=== PATIENT | female | born 1985 | race African-American/Black ===

== ENCOUNTER 2021-07-18 20:42 | Emergency (ER) | payer OTHER ==
[2021-07-18 20:54] VITALS: BP 137/88
[2021-07-18] MEDS ORDERED: HYDROcod/ACETAM 5/325 MG TABLET PO STA (21:13)
[2021-07-18] MEDS ORDERED: CLINDAMYCIN 150 MG CAPSULE PO STA (21:13)
[2021-07-18] MEDS ORDERED: DEXAMETHASONE 10 MG/ML VIAL PO STA (21:13)
[2021-07-18] MEDS ORDERED: HYDROcod/ACET 5/325 Prepack 4 PO STA (21:13)
[2021-07-18] MEDS ORDERED: CHERRY SYRUP 10 ML UDC PO ONE (21:13)
--- NOTE | 2021-07-18 21:15 | ED Physician Documentation ---
PD HPI HEENT - Stated complaint Stated Complaint: MOUTH PX - Chief complaint Chief Complaint: Heent - History obtained from History obtained from: Patient - History of Present Illness Timing - onset: Yesterday Timing - duration: Days (1) Timing - details: Abrupt onset, Still present Location: Mouth (noted onset of pain and swelling lower gingiva buccal side, with worsening over just a day. No sores on lips nor back of throat. No URI symptoms.) Worsens: Other (sensitive locally.) Associated symptoms: No: Fever, Congestion Similar symptoms before: Has not had sx before Recently seen: Clinic (seen dental clinic for treatment of teeth grinding with caps fairly recently (few weeks ago).) Review of Systems Constitutional: denies: Fever, Chills Nose: denies: Rhinorrhea / runny nose, Congestion Throat: reports: Oral lesions / sores (lower gingival tenderness and swelling). denies: Dental pain / toothache, Sore throat Respiratory: denies: Cough PD PAST MEDICAL HISTORY - Past Medical History Cardiovascular: None Respiratory: None Endocrine/Autoimmune: None - Present Medications Home Medications: Ambulatory Orders Medication Instructions Recorded Confirmed Chlorhexidine Gluconate [Peridex] 15 ml MM TID #118 ml 07/18/21 Clindamycin [Cleocin] 300 mg PO TID 5 Days #15 cap 07/18/21 - Allergies Allergies/Adverse Reactions: Allergies Allergy/AdvReac Type Severity Reaction Status Date / Time No Known Drug Allergies Allergy Verified 07/18/21 20:54 PD ED PE NORMAL - Vitals Vital signs reviewed: Yes - General General: Alert and oriented X 3, Well developed/nourished - HEENT HEENT: Moist mucous membranes, Pharynx benign, Other (the teeth show flattening of occlusal surfaces with caps in place c/w teeth grinding. No dental tenderness to percussion. Lower buccal gingiva with general swelling and tenderness without ulcerations. Lower gum does have receding from enamel. Lips without sores/blisters. ) Results - Vitals Vitals: Vital Signs - 24 hr 07/18/21 20:49 Temperature 36.9 C Heart Rate 112 H Respiratory 18 Rate Blood Pressure 137/88 H O2 Saturation 99 Oxygen O2 Source Room air PD MEDICAL DECISION MAKING - ED course Complexity details: considered differential (does not look herpetic and no ulcerative lesions. Presume acute infectious gingivitis. No abscess noted. ), d/w patient Departure - Departure Disposition: 01 Home, Self Care Clinical Impression: Acute gingivitis due to non-plaque induced gingival disease Condition: Stable Record reviewed to determine appropriate education?: Yes Follow-Up: DONALDO Perez [Provider Group] Prescriptions: Clindamycin [Cleocin] 300 mg PO TID 5 Days #15 cap Chlorhexidine Gluconate [Peridex] 15 ml MM TID #118 ml Comments: Rinse with antiseptic mouth rinse several times daily (chlorhexidine). Use ibuprofen for inflammation and pain 400-600 mg 2 times daily. Clindamycin antibiotic 3 times a day for the next 5 days for presumed bacterial component. Add Tylenol every 4-6 hours if needed for pain or hydrocodone as needed for worse pain. Follow-up with the dental clinic in the next 1 to 2 days. I transmitted your prescriptions to the [facility] in [place]. Discharge Date/Time: 07/18/21 21:26
== END 2021-07-18 21:26 | disposition home or self-care (01) ==
LOC: ED 20:42
DX: K05.01 Acute gingivitis, non-plaque induced (principal)
CPT/HCPCS: 99282; 99283; A9270

== ENCOUNTER 2022-01-07 08:38 | Emergency (ER) | payer OTHER ==
[2022-01-07 08:48] VITALS: BP 118/85
--- NOTE | 2022-01-07 08:49 | ED Physician Documentation ---
PD HPI LOWER EXT INJURY - Stated complaint Stated Complaint: CUT ON R KNEE - Chief complaint Chief Complaint: Laceration - History obtained from History obtained from: Patient - History of Present Illness PD HPI LOW EXT INJURY LOCATION: Right, Knee Type of injury: Fall (Slipped and fell while exercising and landed onto gravel on the right knee with abrasion and some small debris. She showered and cleansed it afterward. Applied dressing. Has had some mild weeping and bleeding still today. Concerned about early infection.) Timing - onset: How many days ago (2) Timing - duration: Days (2) Timing - details: Abrupt onset, Still present Worsened by: Palpating Associated symptoms: Swelling. No: Weakness, Numbness Similar symptoms before: Has not had sx before Recently seen: Not recently seen (she has washed wound and was okay first day. Noted some yellow crusting this morning that she cleaned off. No purulence.) Review of Systems Constitutional: denies: Fever, Chills Neurologic: denies: Focal weakness, Numbness PD PAST MEDICAL HISTORY - Past Medical History Cardiovascular: None Respiratory: None Endocrine/Autoimmune: None - Present Medications Home Medications: Ambulatory Orders Medication Instructions Recorded Confirmed Chlorhexidine Gluconate [Peridex] 15 ml MM TID #118 ml 07/18/21 12/10/21 Clindamycin [Cleocin] 300 mg PO TID 5 Days #15 cap 07/18/21 12/10/21 Mupirocin 2% Oint [Bactroban 2% 1 applic TOP TID #15 gm 01/07/22 Oint] - Allergies Allergies/Adverse Reactions: Allergies Allergy/AdvReac Type Severity Reaction Status Date / Time No Known Drug Allergies Allergy Verified 01/07/22 08:47 - Social History Smoking Status: Current every day smoker PD ED PE NORMAL - Vitals Vital signs reviewed: Yes - General General: Alert and oriented X 3, No acute distress, Well developed/nourished - Derm Derm: Normal color, Warm and dry - Extremities Extremities: Other (right anterior infrapatellar area with 2 cm sized area of partial thickness abrasion. No FB, no signs of infection. Mild amount of fiber from current pant leggings. some bruising color under skin inferiorly.No redness/warmth.) Results - Vitals Vitals: Oxygen O2 Source Room air PD MEDICAL DECISION MAKING - ED course Complexity details: considered differential (wound is abrasion with linear areas c/w fall foarward. No lacs to suture nor FBs. She was concerned about early infection but is just bruising color in area.), d/w patient Departure - Departure Disposition: 01 Home, Self Care Clinical Impression: Knee abrasion Qualifiers: Encounter type: initial encounter Laterality: right Qualified Code(s): S80.211A - Abrasion, right knee, initial encounter Condition: Stable Record reviewed to determine appropriate education?: Yes Instructions: ED Abrasion Follow-Up: DONALDO Perez [Provider Group] Prescriptions: Mupirocin 2% Oint [Bactroban 2% Oint] 1 applic TOP TID #15 gm Comments: This does not look infected to me at this time. I would clean it with soap and water twice daily and apply mupirocin antibiotic ointment. Just apply this lightly. Then cover it with a nonadherent dressing and wrap to keep it protected. This should heal up okay over the next week or so. Recheck if signs of infection develop. Tylenol ibuprofen as needed for pains. Abrasions will commonly weep a mild plasma type yellow liquid that will get somewhat crusty. Be wary of a more purulent type look or any surrounding redness or swelling. Discharge Date/Time: 01/07/22 09:37
[2022-01-07] MEDS ORDERED: MUPIROCIN 2% OINT 1 GM TOP STA (09:21)
== END 2022-01-07 09:37 | disposition home or self-care (01) ==
LOC: ED 08:38
DX: S80.211A Abrasion, right knee, initial encounter (principal); W01.0XXA Fall on same level from slipping, tripping and stumbling without subsequent striking against object, initial encounter; Y93.89 Activity, other specified; Y92.89 Other specified places as the place of occurrence of the external cause
CPT/HCPCS: 99282; A9270

== ENCOUNTER 2022-06-22 19:00 | Emergency (ER) | payer OTHER ==
[2022-06-22 19:33] LABS: BASOPHILS % (AUTO) 0.3 %; EOSINOPHILS # (AUTO) 0.1 10^3/uL (0.0-0.7); EOSINOPHILS % (AUTO) 1.1 %; HCT - HEMATOCRIT 39.5 % (37.0-47.0); HGB - HEMOGLOBIN 12.3 g/dL (12.0-16.0); LYMPHOCYTES # (AUTO) 1.2 10^3/uL (1.5-3.5); LYMPHOCYTES % (AUTO) 11.9 %; MEAN CORPUSCULAR HEMOGLOBIN 28.9 pg (27.0-31.0); MEAN CORPUSCULAR HGB CONC 31.1 g/dL (32.0-36.0); MEAN CORPUSCULAR VOLUME 92.7 fL (81.0-99.0); MEAN PLATELET VOLUME 8.9 fL (7.9-10.8); MONOCYTES % (AUTO) 9.7 %; NEUTROPHILS # (AUTO) 7.8 10^3/uL (1.5-6.6); NEUTROPHILS % (AUTO) 76.7 %; PLT - PLATELET COUNT 296 10^3/uL (130-450); RED BLOOD COUNT 4.26 10^6/uL (4.20-5.40); RED CELL DISTRIBUTION WIDTH 15.6 % (12.0-15.0); WHITE BLOOD COUNT 10.2 x10^3/uL (4.8-10.8)
[2022-06-22 19:47] LABS: ALBUMIN 4.5 g/dL (3.2-5.5); ALBUMIN/GLOBULIN RATIO 1.3 (1.0-2.2); BILIRUBIN,TOTAL 0.6 mg/dL (0.2-1.0); CALCIUM 9.6 mg/dL (8.5-10.3); CREATININE 0.8 mg/dL (0.4-1.0); POTASSIUM 3.7 mmol/L (3.5-5.0); TOTAL PROTEIN 7.9 g/dL (6.7-8.2)
--- NOTE | 2022-06-22 20:01 | ED Physician Documentation ---
PD HPI ABD PAIN - Stated complaint Stated Complaint: ABD/BACK PX - Chief complaint Chief Complaint: Abd Pain - History obtained from History obtained from: Patient - History of Present Illness Timing - onset: Today Timing - duration: Days (1) Timing - details: Abrupt onset, Still present Quality: Cramping, Aching, Pain Location: RLQ, Suprapubic Radiation: Lower back Improved by: No: Eating, Laying still Worsened by: Moving, Palpation. No: Eating Associated symptoms: Nausea, Vaginal bleeding (like menstrual cycle.). No: Fever, Vomiting, Diarrhea, Constipation, Dysuria Similar symptoms before: Diagnosis (has large fibroids and has gotten progressively worsening dysmenorrhea the past several months since stopped Lupron shots.) Recently seen: Not recently seen Review of Systems Constitutional: denies: Fever, Chills GI: reports: Abdominal Pain, Abdominal Swelling (Has normally fullness and tender in lower abd due to very large fibroid.), Nausea. denies: Vomiting, Constipation, Diarrhea, Bloody / black stool : reports: Vaginal bleeding (normal menstrual amount). 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 : None HEENT: None Psych: None Musculoskeletal: None Derm: None - Present Medications Home Medications: Ambulatory Orders Medication Instructions Recorded Confirmed Ondansetron Odt [Zofran] 4 mg TL Q6H PRN #10 tablet 06/22/22 Oxycodone HCl/Acetaminophen 1 each PO Q6H PRN #20 tablet 06/22/22 [Percocet 5-325 mg Tablet] - Allergies Allergies/Adverse Reactions: Allergies Allergy/AdvReac Type Severity Reaction Status Date / Time No Known Drug Allergies Allergy Verified 03/21/22 20:18 - Social History Does the pt smoke?: No Smoking Status: Never smoker Does the pt drink ETOH?: No Does the pt have substance abuse?: No - Immunizations Immunizations are current?: Yes - POLST Patient has POLST: No PD ED PE NORMAL - Vitals Vital signs reviewed: Yes - General General: Alert and oriented X 3, Well developed/nourished, Other (appears in pain but sitting in chair without positional problems. ) - Cardiac Cardiac: RRR, No murmur - Respiratory Respiratory: Clear bilaterally - Abdomen Abdomen: Normal bowel sounds, Soft, No organomegaly, Other (Tender in the lower abdomen both left and right without any percussion or rebound tenderness. There is some fullness with firmness in the lower abdomen consistent with an enlarged uterus. No peritoneal signs.) - Female Female : Deferred - Rectal Rectal: Deferred - Back Back: No CVA TTP - Derm Derm: Normal color Results - Vitals Vitals: Vital Signs - 24 hr 06/22/22 06/22/22 06/22/22 19:13 19:51 21:21 Temperature 37.2 C 36.8 C Heart Rate 103 H 86 Respiratory 16 16 15 Rate Blood Pressure 125/84 H 126/86 H O2 Saturation 100 100 Oxygen O2 Source Room air - Labs Labs: Laboratory Tests 06/22/22 06/22/22 06/22/22 19:26 19:26 19:26 WBC 10.2 RBC 4.26 Hgb 12.3 Hct 39.5 MCV 92.7 MCH 28.9 MCHC 31.1 L RDW 15.6 H Plt Count 296 MPV 8.9 Neut # (Auto) 7.8 H Lymph # (Auto) 1.2 L Starr # (Auto) 1.0 Eos # (Auto) 0.1 Baso # (Auto) 0.0 Absolute Nucleated RBC 0.00 Nucleated RBC % 0.0 Sodium 139 Potassium 3.7 Chloride 103 Carbon Dioxide 27 Anion Gap 9.0 BUN 18 Creatinine 0.8 Estimated GFR (MDRD) 97 Glucose 140 H Calcium 9.6 Total Bilirubin 0.6 AST 21 ALT 24 Alkaline Phosphatase 46 Total Protein 7.9 Albumin 4.5 Globulin 3.4 Albumin/Globulin Ratio 1.3 Lipase 46 Serum HCG, Qual Blood Type B POSITIVE Antibody Screen NEGATIVE 06/22/22 19:26 WBC RBC Hgb Hct MCV MCH MCHC RDW Plt Count MPV Neut # (Auto) Lymph # (Auto) Starr # (Auto) Eos # (Auto) Baso # (Auto) Absolute Nucleated RBC Nucleated RBC % Sodium Potassium Chloride Carbon Dioxide Anion Gap BUN Creatinine Estimated GFR (MDRD) Glucose Calcium Total Bilirubin AST ALT Alkaline Phosphatase Total Protein Albumin Globulin Albumin/Globulin Ratio Lipase Serum HCG, Qual NEGATIVE Blood Type Antibody Screen PD Medical Decision Making - ED course Complexity details: reviewed old records (I looked for and did not find a [place] [facility] E form so no repeated visits nor multiple pain meds recent.), reviewed results, re-evaluated patient (She is having modest to moderate improvement with the Toradol IM. She is driving herself home and so was not given any opioid medicine here. Given the time of night the pharmacies will be closed and she was given a prepack of oxycodone.) Reviewed Lab Results: The patient does have history of significant anemia and gets IV iron infusions. She denies having any vaginal bleeding at this time. She states her periods typically last 3 to 4 days and have been associated with severe cramps similar to today. She will get heavy. Bleeding typically in that timeframe. She does have a very large fibroid and states her uterus is "about 20 inches" in size. This leads to a firmness and distention of the lower abdomen in the suprapubic area. She had been on Lupron and that was discontinued a few months ago and she is having periods with significant pain. Onset of her period today with significant pain. She tried anti-inflammatories and Tylenol at home but they were ineffective. She has also nauseated. Her blood count was ordered and reviewed as well as a chemistry panel was ordered and reviewed to evaluate for these. Her hemoglobin is 12 which is in the normal range. Her electrolytes and kidney function are in the normal range as well. A test was ordered and reviewed and had a negative result. Considered but did not feel need for pelvic ultrasound or abdominal CT as no peritoneal signs noted and known process of uterine fibroids. Procedural Risk Factors Specific to Patient: She was given a IM medication here and a prescription for pain medication and nausea medicines sent to her pharmacy. She was counseled on potential common side effects. ED course: The patient with significant lower abdominal cramping pain into her back similar to but worse than recent menstrual period cramps. No vaginal bleeding at this time. Her abdominal exam shows tenderness in the lower abdomen with the enlarged uterus easily felt. No generalized tenderness no percussion tenderness to suggest peritoneal signs. Blood count is good. Departure - Departure Disposition: 01 Home, Self Care Clinical Impression: Abdominal cramping, bilateral lower quadrant, Dysmenorrhea Uterine fibroid Qualifiers: Uterine leiomyoma location: unspecified location Qualified Code(s): D25.9 - Leiomyoma of uterus, unspecified Condition: Stable Follow-Up: RENETTA BOYER DO [Primary Care Provider] - Prescriptions: Oxycodone HCl/Acetaminophen [Percocet 5-325 mg Tablet] 1 each PO Q6H PRN #20 tablet PRN Reason: pain Ondansetron Odt [Zofran] 4 mg TL Q6H PRN #10 tablet PRN Reason: Nausea / Vomiting Comments: Continue continue with your naproxen or ibuprofen regularly over the next several days to help with your painful menstrual cramps. Add Tylenol every 4-6 hours if needed. In addition or instead you can use the oxycodone/acetaminophen in lieu of the Tylenol for worse pain. Ondansetron if needed for nausea. Follow-up with your primary care if not improving well over the next several days has you would ask backed with your pattern of periods. Return if worse. I sent your prescriptions to the [facility] pharmacy. I am prescribing a short course of narcotic pain medication for you. These are potentially dangerous and addictive medications that should be used carefully. These medications may constipate you. Take an [id number] stool softener such as docusate twice daily with plenty of water while taking these medications. If you go 24 hours without a bowel movement, take [id number] MiraLAX, per package instructions. Do not drink or drive while taking these medications. If you received narcotic or sedating medications while in the emergency department do not drive for 24 hours. Store this medication in a safe, secure place and out of reach of children. It is a violation of federal law to give or sell this medication to another person or to use in a manner other than prescribed. The ED will not refill narcotic prescriptions, including prescriptions lost or stolen. You can dispose of unwanted medications at the [facility]'s office or at several pharmacies such as [facility]. Discharge Date/Time: 06/22/22 21:29
[2022-06-22] MEDS ORDERED: ONDANSETRON ODT 4 MG TABLET TL STA (20:25)
[2022-06-22] MEDS ORDERED: KETOROLAC 30 MG/ML VIAL IM STA (20:25)
[2022-06-22] MEDS ORDERED: ACETAMINOPHEN 500 MG TABLET PO STA (20:26)
[2022-06-22] MEDS ORDERED: ONDANSETRON ODT 4 MG Prepack 2 TL PRN (20:26)
[2022-06-22] MEDS ORDERED: oxyCODONE/ACET 5/325 Prepack 4 PO STA (20:26)
[2022-06-22 20:50] LABS: HCG,QUALITATIVE BLOOD NEGATIVE
[2022-06-22 21:24] VITALS: BP 126/86
== END 2022-06-22 21:29 | disposition home or self-care (01) ==
LOC: ED 19:00
DX: R10.32 Left lower quadrant pain (principal); R10.31 Right lower quadrant pain; N94.6 Dysmenorrhea, unspecified; D25.9 Leiomyoma of uterus, unspecified
CPT/HCPCS: 36415; 80053; 83690; 84703; 85025; 86850; 86900; 86901; 96372; 99283; 99284; A9270; Q0162

== ENCOUNTER 2022-06-29 16:56 | Emergency (ER) | payer OTHER ==
[2022-06-29 17:05] VITALS: BP 141/86
[2022-06-29 17:32] LABS: BASOPHILS % (AUTO) 0.5 %; EOSINOPHILS # (AUTO) 0.2 10^3/uL (0.0-0.7); EOSINOPHILS % (AUTO) 2.7 %; HCT - HEMATOCRIT 37.9 % (37.0-47.0); HGB - HEMOGLOBIN 11.5 g/dL (12.0-16.0); LYMPHOCYTES # (AUTO) 1.7 10^3/uL (1.5-3.5); LYMPHOCYTES % (AUTO) 26.3 %; MEAN CORPUSCULAR HEMOGLOBIN 28.5 pg (27.0-31.0); MEAN CORPUSCULAR HGB CONC 30.3 g/dL (32.0-36.0); MEAN CORPUSCULAR VOLUME 93.8 fL (81.0-99.0); MEAN PLATELET VOLUME 9.2 fL (7.9-10.8); MONOCYTES # (AUTO) 0.6 10^3/uL (0.0-1.0); MONOCYTES % (AUTO) 9.7 %; NEUTROPHILS # (AUTO) 3.8 10^3/uL (1.5-6.6); NEUTROPHILS % (AUTO) 60.6 %; PLT - PLATELET COUNT 340 10^3/uL (130-450); RED BLOOD COUNT 4.04 10^6/uL (4.20-5.40); RED CELL DISTRIBUTION WIDTH 16.8 % (12.0-15.0); WHITE BLOOD COUNT 6.3 x10^3/uL (4.8-10.8)
[2022-06-29 17:45] LABS: ALBUMIN/GLOBULIN RATIO 1.1 (1.0-2.2); BILIRUBIN,TOTAL 0.5 mg/dL (0.2-1.0); CALCIUM 9.6 mg/dL (8.5-10.3); CREATININE 0.7 mg/dL (0.4-1.0); POTASSIUM 4.1 mmol/L (3.5-5.0); TOTAL PROTEIN 7.5 g/dL (6.7-8.2)
== END 2022-06-29 18:50 | disposition left against medical advice (07) ==
LOC: ED 16:56
DX: Z53.21 Procedure and treatment not carried out due to patient leaving prior to being seen by health care provider (principal)
CPT/HCPCS: 36415; 80053; 83690; 85025

== ENCOUNTER 2022-06-29 20:36 | Emergency (ER) | payer OTHER ==
[2022-06-29] MEDS ORDERED: KETOROLAC 30 MG/ML VIAL IM STA (21:20)
[2022-06-29] MEDS ORDERED: oxyCODONE/ACET 5/325 Prepack 4 PO STA (21:20)
--- NOTE | 2022-06-29 21:22 | ED Physician Documentation ---
History of Present Illness - Stated complaint Stated Complaint: ABD, BACK PX - Chief complaint Chief Complaint: Abd Pain - History obtained from History obtained from: Patient - Additonal information Additional information: 36-year-old woman with past medical history of chronic back pain and uterine fibroids presents with bilateral lower abdominal pain and back pain for the past week. 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 Pain flared again tonight and so she re-presented. Patient states this is consistent with prior pain flares. She is in process of consultation for myomectomy.Endorses subjective nausea. She had been here earlier in the day and had lab work done from the waiting room and then left and came back. denies fever, urinary sx. Review of Systems Constitutional: denies: Fever GI: reports: Abdominal Pain, Nausea. 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 : None HEENT: None Psych: None Musculoskeletal: None Derm: None - Present Medications Home Medications: Ambulatory Orders Medication Instructions Recorded Confirmed Ondansetron Odt [Zofran] 4 mg TL Q6H PRN #10 tablet 06/22/22 Oxycodone HCl/Acetaminophen 1 each PO Q6H PRN #20 tablet 06/22/22 [Percocet 5-325 mg Tablet] - Allergies Allergies/Adverse Reactions: Allergies Allergy/AdvReac Type Severity Reaction Status Date / Time No Known Drug Allergies Allergy Verified 06/29/22 20:42 - Social History Does the pt smoke?: No Smoking Status: Never smoker Does the pt drink ETOH?: No Does the pt have substance abuse?: No - Immunizations Immunizations are current?: Yes - POLST Patient has POLST: No PD ED PE NORMAL - Vitals Vital signs reviewed: Yes - General General: Alert and oriented X 3, No acute distress, Well developed/nourished - HEENT HEENT: Atraumatic, PERRL, EOMI - Neck Neck: Supple, no meningeal sign - Cardiac Cardiac: RRR - Respiratory Respiratory: No respiratory distress, Clear bilaterally - Abdomen Abdomen: Other (suprapubic fullness consistent with uterine fibroids. BL LQ discomfort to palpation. otherwise ntnd) Results - Vitals Vitals: Vital Signs - 24 hr 06/29/22 06/29/22 20:44 21:43 Temperature 36.9 C Heart Rate 108 H 90 Respiratory 16 16 Rate Blood Pressure 116/99 H 123/100 H O2 Saturation 100 99 Oxygen O2 Source Room air PD Medical Decision Making - ED course ED course: 36-year-old woman presents with acute on chronic uterine pain and back pain. symptomatic care including intramuscular Toradol and Percocet prepack provided. 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 return precautions given. Departure - Departure Disposition: Home, Self Care Clinical Impression: Fibroids, Back pain Condition: Stable Instructions: ED Chronic Pain Management Comments: You were seen in the emergency department for abdominal pain related to your uterine fibroids as well as chronic back pain. Your lab work uncovered no emergent findings, but your hemoglobin is 11.5, down from 12.3 a week ago. Please follow-up with your primary care provider and return to the emergency department if you experience any new or worsening symptoms or other concerns. Discharge Date/Time: 06/29/22 21:42
[2022-06-29 21:43] VITALS: BP 123/100
== END 2022-06-29 21:42 | disposition home or self-care (01) ==
LOC: ED 20:36
DX: D25.9 Leiomyoma of uterus, unspecified (principal); M54.9 Dorsalgia, unspecified; G89.29 Other chronic pain
CPT/HCPCS: 36415; 80053; 83690; 85025; 96372; 99283

== ENCOUNTER 2022-07-08 09:18 | Outpatient (CLI) | payer OTHER ==
--- NOTE | 2022-07-08 16:19 | MRI Report ---
PROCEDURE: LUMBAR SPINE WO INDICATIONS: LOW BACK PAIN TECHNIQUE: Noncontrast sagittal T1 spin echo and T2 fast echo, sagittal STIR, axial T1 and T2 fast spin echo thr ough the lumbar spine. In cases with scoliosis, additional coronal T2 fast spin echo may be performe d. COMPARISON: None. FINDINGS: Image quality: Excellent. Alignment and Curvature: There is normal bony alignment. Bone Marrow: Marrow is of normal overall signal. No acute vertebral body compression fractures. Spinal Cord: Conus medullaris terminates at the L1 level. Visualized cord demonstrates normal signa l and size. Paraspinous Soft Tissues: No paravertebral masses. T12-L1: No disc bulge, spinal stenosis or foraminal narrowing. L1-L2: No disc bulge, spinal stenosis or foraminal narrowing. L2-L3: No disc bulge, spinal stenosis or foraminal narrowing. L3-L4: No disc bulge, spinal stenosis or foraminal narrowing. L4-L5: No disc bulge, spinal stenosis or foraminal narrowing. L5-S1: Mild disc bulge with mild spinal stenosis. No foraminal narrowing. Mild facet hypertrophy. IMPRESSION: Mild disc bulge with mild spinal stenosis at L5-S1. Reviewed by: Temi Lomax MD on 07/08/2022 4:17 PM PST Approved by: Temi Lomax MD on 07/08/2022 4:17 PM PST Station ID: [id number]
== END 2022-07-08 09:19 | disposition home or self-care (01) ==
LOC: DI 09:18
PROVIDERS: ATTEND Student in an Organized Health Care Education/Training Program
DX: M51.37 Other intervertebral disc degeneration, lumbosacral region (principal); M48.07 Spinal stenosis, lumbosacral region; M47.817 Spondylosis without myelopathy or radiculopathy, lumbosacral region